=== PATIENT | female | born 2000 | race Caucasian/White ===

== ENCOUNTER 2023-09-28 21:43 | Inpatient (IN) | payer OTHER, SELFPAY ==
--- NOTE | ~2023-09-28 | XR_ITS ---
EXAMINATION: XR elbow RT 2V DATE: 09/28/2023 22:18 INDICATION: Right elbow injury. TECHNIQUE: 2 views of right elbow were obtained. COMPARISON: None. FINDINGS: There are oblique fractures of the diaphyses of the radius and ulna. Joint spaces are jerman l. No elbow joint effusion. IMPRESSION: 1. Oblique fractures of the diaphyses of the radius and ulna as described on the forearm radiographs. Reviewed, dictated and finalized at location E. IMPRESSION: 1. Oblique fractures of the diaphyses of the radius and ulna as described on th e forearm radiographs.
--- NOTE | ~2023-09-28 | XR_ITS ---
EXAMINATION: XR surgery orthopedic DATE: 09/30/2023 09:49 INDICATION: Right radius and ulna fractures. TECHNIQUE: 5 intraoperative fluoroscopic views of right forearm were obtained. I was not present. Flu oroscopy exposure time was 11 seconds. COMPARISON: Right forearm radiographs 09/28/2023 FINDINGS: There is a comminuted fracture of right radial diaphysis in near-anatomic alignment status post open reduction internal fixation with plate and screws. There is a comminuted fracture of ulnar diaphysis in near-anatomic alignment status post open reduction internal fixation with plate and scre ws. IMPRESSION: 1. Comminuted fractures of radial and ulnar diaphyses status post open reduction internal fixation. Reviewed, dictated and finalized at location A. IMPRESSION: 1. Comminuted fractures of radial and ulnar diaphyses status post open reductio n internal fixation.
--- NOTE | ~2023-09-28 | XR_ITS ---
EXAMINATION: XR forearm RT 2V DATE: 09/28/2023 22:17 INDICATION: Right forearm injury and deformity. TECHNIQUE: 2 views of right forearm were obtained. COMPARISON: None. FINDINGS: There is an oblique fracture of midshaft of right ulna. The distal fracture fragment demons trates 1 shaft width medial displacement and 11 mm overriding and 13 degrees ulnar angulation. There is an oblique fracture of radial diaphysis. The distal fracture fragment demonstrates one shaft width dorsal displacement, one half shaft width radial displacement, and 11 mm overriding. Joint spaces ar e normal. IMPRESSION: 1. Oblique fractures of the diaphyses of the radius and ulna. Reviewed, dictated and finalized at location E.
[2023-09-28 21:46] VITALS: BP 112/68; PULSE 100; RESP 17; TEMP 36.3; O2SAT 99
[2023-09-28] MEDS: HYDROmorphone HCL INJ (*CRX) 1 MG/ML SYR 0.5 MG IV PUSH ×3 (22:00→23:43)
[2023-09-28] MEDS: SODIUM CHLORIDE 0.9% IV 1,000 ML 999 ML IV CONT (22:55)
[2023-09-28 23:02] LABS: Basophils Percent Auto 0.4 % (0.2-1.2); Eosinophils Percent Auto 0.3 % (0-4.4); Hemoglobin 13.3 g/dL (12.0-15.0); Immature Granulocyte Absolute 0.04 K/mm3 (0.00-0.031); Immature Granulocyte Percent A 0.4 % (0-0.5); Lymphocytes Absolute Auto 1.82 K/mm3 (0.9-3.2); Lymphocytes Percent Auto 18.1 % (18.3-44.2); Mean Corpuscular HGB Conc 34.1 g/dl (32-36); Mean Corpuscular Hemoglobin 30.3 pg (26-34); Mean Corpuscular Volume 88.8 fl (80-100); Mean Platelet Volume 10.7 fl (7.4-10.4); Monocytes Absolute Auto 0.8 K/mm3 (0.1-0.6); Monocytes Percent Auto 7.6 % (2.6-8.5); Neutrophils Absolute Auto 7.4 K/mm3 (1.3-6.7); Neutrophils Percent Auto 73.2 % (45.5-73.1); Platelet Count Result 275 k/mm3 (150-375); Red Blood Count 4.39 M/mm3 (4.2-5.4); Red Cell Distribution Width 12.3 % (11.5-14.5); White Blood Count 10.1 K/mm3 (4.5-10.0)
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
[2023-09-28 23:15] LABS: Alanine Aminotransferase 13 U/L (6-35); Albumin Level 5.1 g/dL (3.5-5.1); Alkaline Phosphatase 85 U/L (38-126); Anion Gap 14 mmol/L (4-12); Aspartate Amino Transferase 22 U/L (14-36); Bilirubin,Total 0.5 mg/dL (0.2-1.3); Blood Urea Nitrogen 6 mg/dL (7-17); Calcium 9.6 mg/dL (8.4-10.2); Carbon Dioxide 21 mmol/L (22-30); Chloride 110 mmol/L (98-107); Estimated CRCL calculation 90 ml/min; Estimated Glomerular Filt Rate > 60; Glucose 115 mg/dL (65-110); Potassium 2.9 mmol/L (3.4-5.0); Sodium 145 mmol/L (137-145)
[2023-09-28] MEDS: POTASSIUM CHLORIDE 20 MEQ ER TABLET PO (23:39)
[2023-09-28] MEDS: SODIUM CHLORIDE 0.9% IV 1,000 ML 125 ML IV CONT (23:43)
[2023-09-28] MEDS: POTASSIUM CHLORIDE INJ 40 MEQ in SODIUM CHLORIDE 0.9% IV 500 ML 130 MEQ IVPB (23:43)
--- NOTE | 2023-09-29 00:28 | ECG_ITS ---
SEE SCANNED COPY FOR CONFIRMED REPORT MTDD
[2023-09-29 00:51] VITALS: BMI 18.8
--- NOTE | 2023-09-29 00:53 | ADMGEN ---
This patient, Amna Hooper, was admitted to Medical Room 343-01. Patient/family oriented to hospital policies and general routines including ID bracelet, bed and alarms, visiting hours, pain management, procedures, bathroom and other care routines, personal items, smoking policy, room service/diet, and visiting hours. Information on how to activate the Rapid Response Team has been discussed. Patient/Family are encouraged to report perceived risks to care and to ask questions if they do not understand what they are told or what they should do.
[2023-09-29] MEDS: ONDANSETRON INJ 4 MG/2 ML VIAL IV PUSH (01:04)
[2023-09-29 01:13] VITALS: BP 132/81; PULSE 73; RESP 18; TEMP 36.4; O2SAT 100; BMI 18.1
[2023-09-29 02:16] LABS: Ethanol 41 mg/dL (<10)
[2023-09-29] MEDS: HYDROmorphone HCL INJ (*CRX) 1 MG/ML SYR IV PUSH ×2 (03:44→06:31)
[2023-09-29 03:53] VITALS: BP 122/71; PULSE 72; RESP 16; TEMP 36.3; O2SAT 100
[2023-09-29] MEDS: SODIUM CHLORIDE 0.9% IV 1,000 ML 125 ML IV CONT ×2 (08:19→16:45)
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
[2023-09-29] MEDS: HYDROcodone/acetaminophen (*CRX) 7.5-325 MG TABLET 1 TAB PO ×2 (09:16→19:03)
[2023-09-29] MEDS: fentaNYL CITRATE INJ (*CRX) 100 MCG/2 ML VIAL 25 MCG IV PUSH ×3 (10:44→20:50)
--- NOTE | 2023-09-29 12:14 | PC.NURSE ---
Pt. verbalizing massive discomfort underneath splint at elbow. Dr Campos informed and agreeable with cutting small cut into splint. A small cut was made into the splint near elbow with trauma mayur. Pt. verbalized relief after cut was made.
[2023-09-29 14:00] VITALS: BP 118/65; PULSE 85; RESP 16; TEMP 36.5; O2SAT 100
[2023-09-29 14:43] LABS: Hematocrit 39.3 % (37.0-47.0); Hemoglobin 13.5 g/dL (12.0-15.0); Mean Corpuscular HGB Conc 34.4 g/dl (32-36); Mean Corpuscular Hemoglobin 30.3 pg (26-34); Mean Corpuscular Volume 88.3 fl (80-100); Mean Platelet Volume 10.8 fl (7.4-10.4); Platelet Count Result 273 k/mm3 (150-375); Red Blood Count 4.45 M/mm3 (4.2-5.4); Red Cell Distribution Width 12.5 % (11.5-14.5); White Blood Count 11.6 K/mm3 (4.5-10.0)
[2023-09-29 14:57] LABS: INR 1.1; Prothrombin Time 14.3 Seconds (11.1-14.7)
[2023-09-29 14:58] LABS: Partial Thromboplastin Time 32.9 Seconds (22.3-36.8)
[2023-09-29 15:02] LABS: Alanine Aminotransferase 14 U/L (6-35); Albumin Level 4.7 g/dL (3.5-5.1); Alkaline Phosphatase 104 U/L (38-126); Anion Gap 9 mmol/L (4-12); Aspartate Amino Transferase 25 U/L (14-36); Bilirubin,Total 1.2 mg/dL (0.2-1.3); Blood Urea Nitrogen 4 mg/dL (7-17); Calcium 9.9 mg/dL (8.4-10.2); Carbon Dioxide 21 mmol/L (22-30); Chloride 109 mmol/L (98-107); Estimated CRCL calculation 123 ml/min; Estimated Glomerular Filt Rate > 60; Glucose 95 mg/dL (65-110); Potassium 3.6 mmol/L (3.4-5.0); Sodium 139 mmol/L (137-145)
--- NOTE | 2023-09-29 20:38 | PC.NURSE ---
2003: At patient bedside. Right hand is warm with proper capillary refill. Movement uncomplicated for all digits at this time.
[2023-09-29 20:50] VITALS: BP 111/52; PULSE 70; RESP 18; TEMP 36.2; O2SAT 100
[2023-09-30] VITALS (14 sets, daily range): BP systolic 105–127; BP diastolic 54–77; PULSE 60–107; RESP 10–20; TEMP 36.2–36.7; O2SAT 96–100
[2023-09-30] MEDS: HYDROcodone/acetaminophen (*CRX) 7.5-325 MG TABLET 1 TAB PO ×3 (00:08→23:58)
[2023-09-30] MEDS: IBUPROFEN IV 400 MG in SODIUM CHLORIDE 0.9% IV 100 ML 200 MG IVPB (00:11)
[2023-09-30] MEDS: SODIUM CHLORIDE 0.9% IV 1,000 ML 125 ML IV CONT (00:12)
[2023-09-30] MEDS: fentaNYL CITRATE INJ (*CRX) 100 MCG/2 ML VIAL 25 MCG IV PUSH ×3 (01:34→10:42)
[2023-09-30 04:30] LABS: Hematocrit 42.3 % (37.0-47.0); Hemoglobin 13.3 g/dL (12.0-15.0); Mean Corpuscular HGB Conc 31.4 g/dl (32-36); Mean Corpuscular Hemoglobin 30.2 pg (26-34); Mean Corpuscular Volume 96.1 fl (80-100); Mean Platelet Volume 10.7 fl (7.4-10.4); Platelet Count Result 213 k/mm3 (150-375); Red Cell Distribution Width 12.2 % (11.5-14.5); White Blood Count 7.6 K/mm3 (4.5-10.0)
[2023-09-30 04:44] LABS: Alanine Aminotransferase 13 U/L (6-35); Alkaline Phosphatase 80 U/L (38-126); Anion Gap 9 mmol/L (4-12); Aspartate Amino Transferase 27 U/L (14-36); Bilirubin,Total 1.3 mg/dL (0.2-1.3); Blood Urea Nitrogen 4 mg/dL (7-17); Calcium 9.1 mg/dL (8.4-10.2); Carbon Dioxide 20 mmol/L (22-30); Chloride 110 mmol/L (98-107); Estimated CRCL calculation 105 ml/min; Estimated Glomerular Filt Rate > 60; Glucose 95 mg/dL (65-110); Potassium 3.4 mmol/L (3.4-5.0); Sodium 139 mmol/L (137-145)
--- NOTE | 2023-09-30 06:57 | WPDHPUPDATE1 ---
History and Physical Update Update Date/Time: 09/30/23 06:57 History and Physical has been reviewed, including an updated exam of the patient. There are NO changes in the patient's condition. Risks, benefits, and alternatives have been discussed and questions answered. Patient agrees to proceed with procedure.
--- NOTE | 2023-09-30 07:17 | PC.NURSE ---
down to surgery via wheelchair.
[2023-09-30] MEDS: ACETAMINOPHEN 500 MG TABLET 1000 MG PO (07:29)
[2023-09-30] MEDS: KETOROLAC 15 MG/ML VIAL (*BKC) IV PUSH (07:30)
--- NOTE | 2023-09-30 07:34 | WPDANESEPPF ---
Anes - Initial Pre Proc Eval Procedure: Operation Date: 09/30/23 07:30 Proposed Procedures p ORIF Wrist Radius Ulna Fracture(Right) - Raciel Campos MD Date/Time: 09/30/23 07:34 Surgeon: Raciel Campos MD Pre Op Diagnosis: right radius and ulna fracture Patient Data Age: 23 Gender: F Height: 1.7 m Weight: 52.6 kg Last Vital Signs Temp 36.6 C 09/30/23 05:06 Pulse 79 09/30/23 05:06 Resp 18 09/30/23 05:06 BP 105/63 09/30/23 05:06 Pulse Ox 100 09/30/23 05:06 O2 Del Method Room Air 09/29/23 20:00 Allergies Allergy/AdvReac Type Severity Reaction Status Date / Time latex Allergy Hives Verified 09/28/23 21:50 Home Medications Medication Instructions Recorded Confirmed Type No Home Medications 05/03/23 09/29/23 History Laboratory Tests 09/28/23 09/29/23 09/29/23 23:36 14:17 14:18 WBC 11.6 H K/mm3 (4.5-10.0) RBC 4.45 M/mm3 (4.2-5.4) Hgb 13.5 g/dL (12.0-15.0) Hct 39.3 % (37.0-47.0) MCV 88.3 fl (80-100) MCH 30.3 pg (26-34) MCHC 34.4 g/dl (32-36) RDW 12.5 % (11.5-14.5) Plt Count 273 k/mm3 (150-375) MPV 10.8 H fl (7.4-10.4) PT Cancelled 14.3 Seconds (11.1-14.7) INR Cancelled 1.1 APTT Cancelled 32.9 Seconds (22.3-36.8) Sodium 139 mmol/L (137-145) Potassium 3.6 mmol/L (3.4-5.0) Chloride 109 H mmol/L (98-107) Carbon Dioxide 21 L mmol/L (22-30) Anion Gap 9 mmol/L (4-12) BUN 4 L mg/dL (7-17) Creatinine 0.50 L mg/dL (0.7-1.0) Estim Creat Clear Calc 123 ml/min Estimated GFR > 60 (59 - ) Glucose 95 mg/dL (65-110) Calcium 9.9 mg/dL (8.4-10.2) Total Bilirubin 1.2 mg/dL (0.2-1.3) AST 25 U/L (14-36) ALT 14 U/L (6-35) Alkaline Phosphatase 104 U/L (38-126) Total Protein 7.0 g/dL (6.3-8.2) Albumin 4.7 g/dL (3.5-5.1) 09/30/23 04:22 WBC 7.6 K/mm3 (4.5-10.0) RBC 4.40 M/mm3 (4.2-5.4) Hgb 13.3 g/dL (12.0-15.0) Hct 42.3 % (37.0-47.0) MCV 96.1 D fl (80-100) MCH 30.2 pg (26-34) MCHC 31.4 L g/dl (32-36) RDW 12.2 % (11.5-14.5) Plt Count 213 k/mm3 (150-375) MPV 10.7 H fl (7.4-10.4) PT INR APTT Sodium 139 mmol/L (137-145) Potassium 3.4 mmol/L (3.4-5.0) Chloride 110 H mmol/L (98-107) Carbon Dioxide 20 L mmol/L (22-30) Anion Gap 9 mmol/L (4-12) BUN 4 L mg/dL (7-17) Creatinine 0.60 L mg/dL (0.7-1.0) Estim Creat Clear Calc 105 ml/min Estimated GFR > 60 (59 - ) Glucose 95 mg/dL (65-110) Calcium 9.1 mg/dL (8.4-10.2) Total Bilirubin 1.3 mg/dL (0.2-1.3) AST 27 U/L (14-36) ALT 13 U/L (6-35) Alkaline Phosphatase 80 U/L (38-126) Total Protein 6.0 L g/dL (6.3-8.2) Albumin 4.0 g/dL (3.5-5.1) Patient hx anesthesia problems: none Family hx anesthesia problems: none Results Review: All pre-operative results and documents have been reviewed as part of the pre-operative evaluation. [facility] Past Medical History Medical History (Updated 09/29/23 @ 08:41 by Raciel Campos MD) Fall from ground level Family History Family History (Updated 05/03/23 @ 09:29 by Christelle Li CMA) Father Lung cancer Mother Lung cancer Other Breast cancer Social History Social History (Updated 05/03/23 @ 09:30 by Christelle Li CMA) Smoking status: Current every day smoker Tobacco type: e-cigarettes/vaping Alcohol intake: current Drinks per week: 2 Alcohol use details: occasional Substance use: current Substance use type: marijuana Do You Feel Safe in your Home?: Yes Lack of Transportation: No Lack of Food: Never True Current Housing: I Have
[2023-09-30] MEDS: ceFAZolin 2 GM/D5W 50 ML 2 GM/50 ML BAG IVPB (07:35)
[2023-09-30] MEDS: BUPivacaine HCL 0.5% 10 ML AMP INFILTRATE (08:13)
[2023-09-30] MEDS: LACTATED RINGERS 1,000 ML 30 ML IV CONT ×2 (09:59)
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
[2023-09-30] MEDS: ONDANSETRON INJ 4 MG/2 ML VIAL IV PUSH (11:56)
--- NOTE | 2023-09-30 13:17 | PCPTNOTE ---
Pt evaluated by physical therapist for mobility and gait in hospital setting. Skilled services related to mobility and gait not required. However pt may benefit from physical or occupational therapy on an outpatient basis when Ortho feels is appropriate.
[2023-09-30] MEDS: KETOROLAC 30 MG/ML VIAL (*BKC) IV PUSH ×2 (14:16→20:31)
[2023-09-30] MEDS: ceFAZolin 1 GM/NS 50 ML 1 GM/50 ML BAG IVPB ×2 (14:16→23:58)
[2023-10-01 00:14] VITALS: BP 115/60; PULSE 68; RESP 18; TEMP 36.2; O2SAT 99
[2023-10-01 05:32] VITALS: BP 100/58; PULSE 81; RESP 16; TEMP 36.4; O2SAT 97
[2023-10-01] MEDS: HYDROcodone/acetaminophen (*CRX) 7.5-325 MG TABLET 1 TAB PO (06:14)
[2023-10-01] MEDS: ceFAZolin 1 GM/NS 50 ML 1 GM/50 ML BAG IVPB (06:15)
[2023-10-01] MEDS: polyethylene glycoL 3350 17 GM POWD.PACK PO (09:42)
[2023-10-01] MEDS: SENNA/DOCUSATE SODIUM TABLET 2 TAB PO (09:42)
--- NOTE | 2023-10-01 11:45 | PM.PNORT ---
Progress Note: A&P Assessment and Plan (1) Displaced fracture of right radius: Qualifiers: Encounter type: initial encounter Fracture morphology: oblique Fracture type: closed Radius location: shaft Qualified Code(s): S52.331A - Displaced oblique fracture of shaft of right radius, initial encounter for closed fracture Code(s): S52.91XA - Unspecified fracture of right forearm, initial encounter for closed fracture Status: Acute Assessment and Plan: Postoperative day 1. Right forearm ORIF. Doing well. Pain controlled. Neurovascularly intact. Sensation improved. Tolerating diet and voiding appropriately. Ready for discharge. (2) Displaced fracture of right ulna: Qualifiers: Encounter type: initial encounter Fracture morphology: oblique Fracture type: closed Ulna location: shaft Qualified Code(s): S52.231A - Displaced oblique fracture of shaft of right ulna, initial encounter for closed fracture Code(s): S52.201A - Unspecified fracture of shaft of right ulna, initial encounter for closed fracture Status: Acute Subjective Subjective Date/Time Seen: 10/01/23 11:45 Post Op day: 1 Principal diagnosis: Right radius and ulna fracture Interval history: Patient awake. States pain is better. Numbness and tingling improved. Some weakness with finger extension. Exam Const: General: healthy appearing; No in distress or confusion Orientation/consciousness: oriented to person, oriented to place, oriented to time and No confusion HENMT: Head: normal to inspection, normocephalic and atraumatic Eyes: Conjunctivae: conjunctivae normal Sclera: sclerae normal Neck: Neck: supple and nontender Resp: Effort & Inspection: normal respiratory effort and no audible wheezes Cardio: Rate: regular rate Rhythm: regular rhythm Skin: General skin exam: no rashes or lesions noted Neuro: General: oriented to person, oriented to place, oriented to time and No confusion Extrem: Right upper extremity: shoulder/upper arm no tenderness and no swelling, elbow/forearm abnormal to inspection (dressing in place), tenderness of the mid-shaft forearm and swelling, wrist abnormal ROM pain with active ROM during with extension and with flexion and pain with passive ROM during with extension and with flexion (Ext 30, Flex 30, Pro 40, Sup 35); no tenderness and Extremity exam: right hand neuromotor exam normal thumb IP flexion normal, neurosensory exam normal radial nerve sensory function normal, ulnar nerve sensory function normal, median nerve sensory function normal and digital nerve sensory function normal, tendon exam normal of all digits, tendon exam abnormal function weak (Finger extension) and vascular exam radial pulse present and normal capillary refill Left upper extremity: normal to inspection, shoulder/upper arm no tenderness and no swelling, elbow/forearm no tenderness and no swelling, wrist normal ROM and radial pulse present 2+; no tenderness and no swelling and hand normal capillary refill, neuromotor exam normal, neurosensory exam normal Details: radial nerve sensory function normal, ulnar nerve sensory function normal, median nerve sensory function normal and digital nerve sensory function normal, vascular exam normal capillary refill and normal ROM of fingers Psych: Affect: normal affect Objective Data Vital Signs Vital Signs: Vital Signs - 24 hr 09/30/23 12:50 09/30/23 13:10 09/30/23 11:46 Temperature 97.7 F Pulse Rate 62 Respiratory Rate 18 Blood Pressure 123/72 Pulse Oximetry 97 Oxygen Delivery Room Air Room Air 09/30/23 12:17 09/30/23 13:17 09/30/23 16:57 Temperature 97.7 F 97.7 F 97.7 F Pulse Rate 62 60 62 Respiratory Rate 20 20 20 Blood Pressure 127/66 113/54 L 125/62 Pulse Oximetry 98 99 98 Oxygen Delivery 09/30/23 20:33 10/01/23 00:14 09/30/23 20:00 Temperature 98.1 F 97.2 F L Pulse Rate 107 H 68 Respiratory Rate 18 18 Blood Pressure 109/6
--- NOTE | 2023-10-01 11:49 | PM.DS ---
DS: Admitting Diagnosis Discharge Date 10/01/2023 Admitting Diagnosis Right radius and ulna fractures DS: Discharge Diagnosis Discharge Diagnosis (1) Displaced fracture of right radius: Qualifiers: Encounter type: initial encounter Fracture morphology: oblique Fracture type: closed Radius location: shaft Qualified Code(s): S52.331A - Displaced oblique fracture of shaft of right radius, initial encounter for closed fracture Code(s): S52.91XA - Unspecified fracture of right forearm, initial encounter for closed fracture Status: Acute Assessment and Plan: Dressing in place right arm. Reviewed range of motion, edema and pain control. DS: Summary Hospital Course Reason for hospitalization: Right forearm fracture Hospital Course: 23-year-old fell and right arm and sustained radius and ulna fracture. Initially with abnormal potassium and blood alcohol. Medical condition corrected. Taken to surgery on 09/30/2003 for ORIF right forearm. Postoperative day 1 neurovascularly intact and stable. Cleared for discharge. Status at Discharge Cognitive/behavioral status at discharge: Stable Functional status at discharge: independent ambulation Overall status at discharge: patient is back to baseline Time Spent with Patient Time attestation: Total time spent providing and/or coordinating discharge services: Exam Const: General: healthy appearing; No in distress or confusion Orientation/consciousness: oriented to person, oriented to place, oriented to time and No confusion HENMT: Head: normal to inspection, normocephalic and atraumatic Eyes: Conjunctivae: conjunctivae normal Sclera: sclerae normal Neck: Neck: supple and nontender Resp: Effort & Inspection: normal respiratory effort and no audible wheezes Cardio: Rate: regular rate Rhythm: regular rhythm Skin: General skin exam: no rashes or lesions noted Neuro: General: oriented to person, oriented to place, oriented to time and No confusion Extrem: Right upper extremity: shoulder/upper arm no tenderness and no swelling, elbow/forearm abnormal to inspection (dressing in place), tenderness of the mid-shaft forearm and swelling, wrist abnormal ROM pain with active ROM during with extension and with flexion and pain with passive ROM during with extension and with flexion (Ext 30, Flex 30, Pro 40, Sup 35); no tenderness and Extremity exam: right hand neuromotor exam normal thumb IP flexion normal, neurosensory exam normal radial nerve sensory function normal, ulnar nerve sensory function normal, median nerve sensory function normal and digital nerve sensory function normal, tendon exam normal of all digits, tendon exam abnormal function weak (Finger extension) and vascular exam radial pulse present and normal capillary refill Left upper extremity: normal to inspection, shoulder/upper arm no tenderness and no swelling, elbow/forearm no tenderness and no swelling, wrist normal ROM and radial pulse present 2+; no tenderness and no swelling and hand normal capillary refill, neuromotor exam normal, neurosensory exam normal Details: radial nerve sensory function normal, ulnar nerve sensory function normal, median nerve sensory function normal and digital nerve sensory function normal, vascular exam normal capillary refill and normal ROM of fingers Psych: Affect: normal affect DS: Data Procedures/Treatments: ORIF right forearm 09/30/2019 Discharge Plan Discharge Attending physician on discharge: Angela Berry Consulting providers: Eric Smith; Felix Beard Discharging Clinician: Angela Berry Anticipated Discharge Date/Time: 10/01/23 13:00 Patient Disposition: Home, Self-Care Activity: may shower and other - see discharge instructions Diet: as tolerated and regular Discharge Instructions: ANGELA BERRY M.D. [facility] [address] [place] [address] POST OPERATIVE DISCHARG
== END 2023-10-01 12:30 | disposition home or self-care (01) | DRG 315 ==
LOC: ANHED 09-29 00:24 → ANH3MED 10-01 09:23 → ANH2MED 10-02 08:39
PROVIDERS: Admitting Provider Orthopaedic Surgery; Emergency Provider Physician Assistant; Visit Provider Orthopaedic Surgery
PROC: 0PSH04Z Reposition Right Radius with Internal Fixation Device, Open Approach (ICD-10-PCS; CPT 25575; principal; 2023-09-30 07:30)
DX: S52.331A Displaced oblique fracture of shaft of right radius, initial encounter for closed fracture (principal); S52.231A Displaced oblique fracture of shaft of right ulna, initial encounter for closed fracture; W18.30XA Fall on same level, unspecified, initial encounter; E87.6 Hypokalemia; F17.290 Nicotine dependence, other tobacco product, uncomplicated
CPT/HCPCS: 36415; 73070; 73090; 80053; 80307; 85025; 85027; 85610; 85730; 86850; 86900; 86901; 93005; 96361; 96365; 96366; 96375; 96376; 97161; 97165; 99199; 99285; A4565; A9270; C1713; C1769; G0378; G0379; J0690; J1100; J1170; J1741; J1885; J2250; J2405; J2704; J3010; J3480; J7030; J7040; J7120

== ENCOUNTER 2025-01-03 12:07 | Emergency (ER) | payer SELFPAY ==
[2025-01-03] VITALS (26 sets, daily range): BP systolic 116–127; BP diastolic 68–84; PULSE 66–104; RESP 12–20; TEMP 36.3; O2SAT 97–100
--- NOTE | ~2025-01-03 | XR_ITS ---
EXAMINATION: XR chest 1V portable DATE: 01/03/2025 13:22 INDICATION: Chest pain TECHNIQUE: frontal view of the chest was obtained. COMPARISON: None FINDINGS: The lungs are clear with no focal airspace opacities, pulmonary edema, pleural effusion or pneumothor ax. The cardiomediastinal silhouette is normal. Visualized bones and soft tissues are unremarkable. IMPRESSION: 1. Normal chest radiograph. Reviewed, dictated and finalized at location A. IMPRESSION: 1. Normal chest radiograph.
--- OUTSIDE RECORDS SUMMARY | 2025-01-03 12:09 | XMS_ITS | Clinical Summary ---
Author Organization [facility] Address [address] [place] [address] Care Team Providers Care Radar Tester Name Role Phone Unavailable Primary Care Provider Unavailabl e Source Comments [facility],non-owned Affiliates and Associated Physician Practices is amultiple site organization consisting of ambulatory clinics and hospital sitesin [place], [place], [place] and [place]. This disclosure is being madepursuant to the Care Everywhere program and may not contain all information available regarding this patient. Last updated 18.[facility] Allergies No known active allergies Medications * Be aware that medications may not be up to date on this document. Alwaysverify current medications with the patient. 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 Gender Identity Not on file Sexual Orientation Not on file Last Filed Vital Signs Vital Sign Reading Time Taken Comments Blood Pressure 108/58 01/06/2017 10:59 AM CDT Pulse 85 01/06/2017 10:59 AM CDT Temperature 36.7 C (98 F) 01/06/2017 10:59 AM CDT Respiratory Rate - - Oxygen Saturation 99% 01/06/2017 10:59 AM CDT Inhaled Oxygen Concentration - - Weight 47.6 kg (105 lb) 01/06/2017 10:59 AM CDT Height 167.6 cm (5' 6) 01/06/2017 10:59 AM CDT Body Mass Index 16.95 01/06/2017 10:59 AM CDT Plan of Treatment Health Maintenance Due Date Last Done Comments HIV SCREENING 2017 HPV VACCINE (1 - 3-dose series) 2017 CHLAMYDIA/GONORRHEA SCREENING 2018 MENINGOCOCCAL (Group B) VACC INE SHARED DECISION-MAKING (1 of 2 - Standard) 2018 HEPATITIS C SCREENING 04/02/2020 DTAP/TDAP/TD VACCINES (1 - Tdap) 2021 HEPATITIS B VACCINE (1 of 3 - 19+ 3-dose series) 2021 COVID-19 VACCINE (1 - 2023-2 5 season) 2024 DEPRESSION SCREENING 05/28/2024 INFLUENZA VACCINE (#1) 2025 ZOSTER VACCINE (1 of 2) 2052 HIB VACCINE Aged Out No longer eligi ble based on patient's age to complete this topic MENINGOCOCCAL GROUPS A/C/Y/W VACCINE Aged Out No longer eligible b ased on patient's age to complete this topic PNEUMOCOCCAL VACCINE Aged Out No long er eligible based on patient's age to complete this topic
--- NOTE | 2025-01-03 12:26 | ED_ITS ---
HPI - Chest Pain General Chief Complaint: Chest Pain Stated Complaint: chest pain Time Seen by Provider: 01/03/25 12:26 Source: patient Mode of arrival: ambulatory Limitations: no limitations History of Present Illness HPI narrative: 24-year-old female with no past medical history presents to the ED with a 6 hour history of -- substernal chest pain which woke her up at 6:00 a.m.. Subsequently the patient was able to go back to sleep. Pain recurred again at 9:00 a.m.. The pain was rated as 7/10. No nausea/ vomiting. No diaphoresis. No shortness of breath. -- Left lower chest wall pain pain has been continuous. Patient's sister who is the 20s had CAD status post stent placement. MD complaint: chest pain Onset (ago): hour(s) (6.5 hrs ) Timing of current episode: constant Prior episodes: No Onset: during rest Pain location: substernal Pain radiation: none Severity: moderate Pain scale (0-10): 7 Quality: aching and heaviness Relieving factors: nothing Exacerbating factors: nothing Treatment prior to arrival: none Risk Factors Coronary artery disease risk factors: smoking history and family history of CAD before age 50 Thoracic aortic dissection risk factors: none Related Data On Oral Contraceptives: No Allergies Allergy/AdvReac Type Severity Reaction Status Date / Time latex Allergy Hives Verified 05/15/24 09:44 Review of Systems 2 Review of Systems: All systems reviewed & are unremarkable except as noted in HPI and below Constitutional: Constitutional: Reports as per HPI and Reports no additional constitutional complaints Eyes: Eyes: Reports as per HPI and Reports no additional eye complaints ENT: Reports system reviewed and no additional complaints, except as documented and Reports as per HPI Cardiovascular: Cardiovascular: Reports as per HPI, Reports no additional cardiovascular complaints and Reports chest pain Respiratory: Respiratory: Reports as per HPI and Reports no additional respiratory complaints Gastrointestinal: Gastrointestinal: Reports as per HPI and Reports no additional gastrointestinal complaints Genitourinary: Genitourinary: Reports no additional female genitourinary complaints and Reports as per HPI Musculoskeletal: Musculoskeletal: Reports no additional musculoskeletal complaints and Reports as per HPI Integumentary/Breasts: Skin/Breast: Reports system reviewed and no additional complaints, except as docu and Reports as per HPI Neurologic: Reports system reviewed and no additional complaints, except as documented and Reports as per HPI Psychiatric: Psychiatric: Reports no additional psychiatric complaints and Reports as per HPI Endocrine: Endocrine: Reports no additional endocrine complaints and Reports as per HPI Hematologic/Lymphatic: Hematologic/Lymphatic: Reports no additional hematologic/lymphatic complaints and Reports as per HPI Allergic/Immunologic: Allergic/Immunologic: Reports no additional allergic/immunologic complaints and Reports as per HPI [facility] Past Medical History Medical History Wrist pain, right Fall from ground level Surgical History Surgical History History of surgery on arm Family History Family History Father Lung cancer Mother Lung cancer Other Breast cancer Social History Social History Smoking status: Current every day smoker Tobacco type: e-cigarettes/vaping Second hand tobacco smoke exposure: Yes Alcohol intake: current Drinks per week: 2 Alcohol use details: occasional Substance use: current Substance use type: marijuana Do You Feel Safe in your Home?: Yes Lack of Transportation: No Lack of Food: Never True Current Housing: I Have Housing Concerned About Future Housing: No Difficulty Paying Gas/Electric Bills: No Difficulty Paying for Meds: No Currently Unemployed: No Education: High School Diploma/GED Difficulty w/ Childcare or Family Care: No Living arrangements: alone Occupation/Education: occupation 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 Gender identity (if verbalized by the patient): Female Sexual Orientation (if Verbalized by the Patient): Bisexual Spiritual care concerns: No Exam 2 Narrative: vitals are stable. Const: General: no acute distress Orientation/consciousness: patient oriented x3 Limitations: no limitations HENMT: Head: normal to inspection Ears: external ears normal F bonnie/Nose/Sinus: Normal external nose present Face and sinus: normal facial exam Mouth: Yes Normal oral and palatal mucosa present Throat: posterior oropharynx normal Eyes: Conjunctivae: conjunctivae normal Pupils: Equal, round and reactive pupils present EOM: EOMs intact bilaterally Direct Ophthalmoscopy: no photophobia Neck: Neck: normal visual inspection, no lymphadenopathy and no meningeal signs Chest: Chest palpation & inspection: normal inspection of the chest Other: Tenderness over the sternum. The pain is similar to the pain which she has Resp: Effort & Inspection: normal respiratory effort Auscultation: clear to auscultation bilaterally Cardio: Rate: regular rate Rhythm: regular rhythm GI: Auscultation: normal bowel sounds Other: tenderness/rigidity / rebound. : General: Yes no CVA tenderness Back/Spine/Pelvis: Back: no CVA tenderness Skin: General skin exam: normal color Rashes: no rashes Wounds: no wounds Neuro: General: patient oriented x3, moves all extremities, no meningeal signs, no focal motor deficits and CN's II-XI intact bilaterally Speech: n ormal speech Extrem: General: normal to inspection and no clubbing, cyanosis or edema Psych: Mental Status: mental status grossly normal Affect: normal affect Attitude: cooperative Course Course Emergency Course: chest pain Vital Signs Vital signs: Vital Signs Temperature 36.3 C L 01/03/25 12:07 Pulse Rate 102 H 01/03/25 12:07 Respiratory Rate 16 01/03/25 12:07 Blood Pressure 119/75 01/03/25 12:07 Pulse Oximetry 99 01/03/25 12:07 Oxygen Delivery Room Air 01/03/25 12:07 Temperature 36.3 C L 01/03/25 12:07 Pulse Rate 75 01/03/25 14:31 Respiratory Rate 15 01/03/25 14:31 Blood Pressure 121/82 01/03/25 14:30 Pulse Oximetry 99 01/03/25 14:31 Oxygen Delivery Room Air 01/03/25 14:31 MDM - Chest Pain MDM Narrative Medical decision making narrative: substernal chest pain musculoskeletal pain Differential Diagnosis Differential diagnosis: Likely pneumothorax and atypical chest pain Medical Records Data Attestation: I reviewed the patient's medical records. Lab Data Attestation: I reviewed the patient's lab results. 01/03/25 12:41 01/03/25 12:41 Labs: Lab Results 01/03/25 01/03/25 01/03/25 Range/Units 12:41 12:45 14:28 WBC 8.6 (4.8-10.8) K/mm3 RBC 4.47 (4.20-5.40) M/mm3 Hgb 13.5 (12.0-15.0) g/dL Hct 40.4 (35.0-49.0) % MCV 90.4 (78.0-102.0) fL MCH 30.2 (27.0-31.0) pg MCHC 33.4 (32-36) g/dL RDW 12.4 (11.6-14.4) % Plt Count 335 (150-420) K/mm3 MPV 10.4 (9.2-11.8) fl Immature Gran % (Auto) 0.4 H (0.0-0.0) % Neut % (Auto) 70.9 H (50.0-70.0) % Lymph % (Auto) 20.7 (18.0-42.0) % Kerr % (Auto) 7.4 (2.0-11.0) % Eos % (Auto) 0.2 L (1.0-6.0) % Baso % (Auto) 0.4 (0.0-1.0) % Lymph # (Auto) 1.77 (1.10-4.50) K/mm3 Kerr # (Auto) 0.63 (0.10-0.90) K/mm3 Eos # (Auto) 0.02 (0.02-0.50) K/mm3 Baso # (Auto) 0.03 (0.00-0.10) K/mm3 Abs Immat Gran (auto) 0.03 H (0.00-0.00) K/mm3 Absolute Neuts (auto) 6.07 (1.70-7.20) K/mm3 Absolute Nucleated RBC 0.00 (0.00-0.00) K/mm3 Nucleated RBC % 0.0 (0-0.0) % D-Dimer 0.28 (0.19-0.50) mg/L Sodium 141 (137-145) mmol/L Potassium 3.7 (3.4-5.0) mmol/L Chloride 108 H (98-107) mmol/L Carbon Dioxide 25 (22-30) mmol/L Anion Gap 8 (4-12) mmol/L BUN 5 L (7-17) mg/dL Creatinine 0.66 L (0.7-1.0) mg/dL Estim Creat Clear Calc 93 ml/min Estimated GFR > 60 (59 - ) Glucose 96 (65-110) mg/dL Calculated Osmolality 289 (285-295) mOsm/kg Calcium 9.5 (8.4-10.2) mg/dL Total Bilirubin 0.4 (0.2-1.3) mg/dL AST 26 (14-36) U/L ALT 17 (6-35) U/L Alkaline Phosphatase 86 (38-126) U/L Troponin I < 0.012 < 0.012 (0.000-0.034) ng/mL Total Protein 7.4 (6.3-8.2) g/dL Albumin 4.7 (3.5-5.1) g/dL Urine Test Negative ECG Data EKG #1: ECG completion date: 01/03/25 ECG completion time: 12:09 Interpretation: sinus tachycardia with a heart rate of [address] elevation. EKG #2: ECG completion date: 01/03/25 ECG completion time: 14:44 Interpretation: Normal sinus rhythm. Normal axis. No ST elevation. EKG unchanged from a previous EKG done 2 hours ago except for slowing of the heart rate. She Discharge Plan Discharge Clinical Impression: Atypical chest pain, Musculoskeletal chest pain Patient Disposition: Home Condition: Stable Instructions: Antibiotic Form, Musculoskeletal Pain (ED) Patient Language: Ecuadorean Prescriptions: No Action medroxyprogesterone [Depo-Provera] 150 mg/mL syringe 150 mg IM [id number] Qty: 1 0RF metronidazole 500 mg tablet 500 mg PO Q12H Qty: 14 0RF Follow-up/Referrals: Mirella Peña MD [Physician] - Time of Disposition: 15:04 Quality HEART score for chest pain patients History: slightly suspicious ECG: normal Age: < or = to 45 years Risk factors: 1 or 2 risk factors Troponin: < or = to 1x normal limit Heart score: 1
--- NOTE | 2025-01-03 12:34 | ECG_ITS ---
Test Date: 2025-01-03 12:09:56 Measurements Intervals [place] Rate: 102 P: 74 NM: 176 QRS: 63 QRSD: 84 T: 42 QT: 328 QTc: 429 Interpretive Statements SINUS TACHYCARDIA POSSIBLE RIGHT ATRIAL ENLARGEMENT LEFT ATRIAL ENLARGEMENT POSSIBLE RIGHT VENTRICULAR CONDUCTION DELAY BORDERLINE T WAVE ABNORMALITY- INFERIOR LEADS BASELINE ARTIFACT- I, II, AVR, AVL, AVF, V1 BORDERLINE ECG No previous ECG available for comparison Electronically Signed On 01-03-2025 14:52:21 CDT by Nico Roldan D.O.
[2025-01-03 12:46] LABS: Hematocrit 40.4 % (35.0-49.0); Hemoglobin 13.5 g/dL (12.0-15.0); Immature Granulocyte Percent A 0.4 % (0.0-0.0); Lymphocytes Absolute Auto 1.77 K/mm3 (1.10-4.50); Mean Corpuscular HGB Conc 33.4 g/dL (32-36); Mean Corpuscular Hemoglobin 30.2 pg (27.0-31.0); Mean Corpuscular Volume 90.4 fL (78.0-102.0); Nucleated Red Blood Cells Absolute Auto 0.00 K/mm3 (0.00-0.00); Nucleated Red Blood Cells Perc 0.0 % (0-0.0); Platelet Count Result 335 K/mm3 (150-420); Red Blood Count 4.47 M/mm3 (4.20-5.40); White Blood Count 8.6 K/mm3 (4.8-10.8)
[2025-01-03 12:59] LABS: Alanine Aminotransferase 17 U/L (6-35); Albumin Level 4.7 g/dL (3.5-5.1); Alkaline Phosphatase 86 U/L (38-126); Anion Gap 8 mmol/L (4-12); Aspartate Amino Transferase 26 U/L (14-36); Bilirubin,Total 0.4 mg/dL (0.2-1.3); Blood Urea Nitrogen 5 mg/dL (7-17); Calcium 9.5 mg/dL (8.4-10.2); Carbon Dioxide 25 mmol/L (22-30); Chloride 108 mmol/L (98-107); Estimated CRCL calculation 93 ml/min; Estimated Glomerular Filt Rate > 60; Glucose 96 mg/dL (65-110); Osmolality Calculated 289 mOsm/kg (285-295); Potassium 3.7 mmol/L (3.4-5.0); Sodium 141 mmol/L (137-145); Total Protein 7.4 g/dL (6.3-8.2)
[2025-01-03 12:59] LABS: Pregnancy On Board Control Positive
--- OUTSIDE RECORDS SUMMARY | 2025-01-03 13:04 | XMS_ITS | Clinical Summary ---
Author Organization [facility] Address [address] [place] [address] Care Team Providers Care Counter Hop Name Role Phone Unavailable Primary Care Provider Unavailabl e Source Comments [facility],non-owned Affiliates and Associated Physician Practices is amultiple site organization consisting of ambulatory clinics and hospital sitesin [place], [place], [place] and [place]. This disclosure is being madepursuant to the Care Everywhere program and may not contain all information available regarding this patient. 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
[2025-01-03 13:18] LABS: Troponin I < 0.012 ng/mL (0.000-0.034)
[2025-01-03] MEDS: ASPIRIN 81 MG CHEWABLE TABLET 324 MG PO (13:45)
--- NOTE | 2025-01-03 14:30 | ECG_ITS ---
Test Date: 2025-01-03 14:45:13 Measurements Intervals [place] Rate: 76 P: 72 AL: 201 QRS: 59 QRSD: 87 T: 51 QT: 385 QTc: 433 Interpretive Statements SINUS RHYTHM POSSIBLE LEFT ATRIAL ENLARGEMENT POSSIBLE RIGHT VENTRICULAR CONDUCTION DELAY BASELINE WANDER- V3 BORDERLINE ECG Compared to ECG 01/03/2025 12:09:56 HEART RATE HAS DECREASED Electronically Signed On 01-03-2025 14:53:27 CDT by Nico Roldan D.O.
[2025-01-03 14:55] LABS: Troponin I < 0.012 ng/mL (0.000-0.034)
== END 2025-01-03 15:14 | disposition home or self-care (01) ==
PROVIDERS: Emergency Provider Internal Medicine Critical Care Medicine; PCP Obstetrics & Gynecology
DX: R07.89 Other chest pain (principal); I25.10 Atherosclerotic heart disease of native coronary artery without angina pectoris; F17.290 Nicotine dependence, other tobacco product, uncomplicated
CPT/HCPCS: 36415; 71045; 80053; 81025; 84484; 85025; 85380; 93005; 99284; A9270